=== PATIENT | female | born 1965 | race Caucasian/White ===

== ENCOUNTER 2017-04-20 10:16 | Day surgery (SDC) | payer OTHER, BC ==
[2017-04-19 11:46] VITALS: BMI 24.5
[2017-04-20 12:20] VITALS: TEMP 98
[2017-04-20 14:13] VITALS: BP 141/94; PULSE 75
--- NOTE | 2017-04-23 13:09 | PATH ---
Surgical Pathology Report Patient Name: SUKUMAR MCDONOUGH [facility]. Rec. #: [id number] /Age/Gender: 1965 (Age: 51) / F Account: [id number] Location: [facility]-ENDOSCOPY Taken: 04/20/2017 Received: 04/20/2017 Reported: 04/23/2017 Physicians: Ofelia Cano M.D. Specimen(s) Received A: BX 2ND PORTION DUODENUM B: BX ANTRUM C: BX DISTAL AND MID ESOPHAGUS D: BX ILEUM E: BX CECUM Clinical History Heartburn, rectal bleeding Gastritis, hemorrhoidal bleeding Final Diagnosis A. DUODENUM, SECOND PORTION AND BULB, BIOPSY: DUODENAL MUCOSA WITH FOCAL ACTIVE AND CHRONIC INFLAMMATION AND DEACON'S GLANDS HYPERPLASIA. NO HISTOLOGIC EVIDENCE OF GLUTEN SENSITIVE ENTEROPATHY (CELIAC DISEASE). B. STOMACH, ANTRUM, BIOPSY: GASTRIC ANTRAL MUCOSA WITH MODERATE CHRONIC GASTRITIS. IMMUNOSTAIN FOR H. PYLORI IS NEGATIVE FOR ORGANISMS. C. ESOPHAGUS, DISTAL AND MID, BIOPSY: SQUAMOUS EPITHELIUM WITH MARKED CHRONIC INFLAMMATION AND MARKED REFLUX TYPE CHANGES. NO COLUMNAR TUMOR PRESENT (NO INTESTINAL METAPLASIA OF KIMBALL'S ESOPHAGUS IDENTIFIED). NO EVIDENCE OF EOSINOPHILIC ESOPHAGITIS (SEE COMMENT). Comment: There are intraepithelial eosinophilic present; however, the eosinophil count is low (<5/HPF), the finding is most likely related to GERD. D. ILEUM, BIOPSY: ILEAL MUCOSA WITHOUT SIGNIFICANT PATHOLOGIC CHANGES. NO EVIDENCE OF ACTIVE INFLAMMATION, SIGINIFICANT ARCHITECTURAL DISTORTION, GRANULOMATA OR DYSPLASIA; NO INCREASE IN INTRAEPITHELIAL LYMPHOCYTES. E. COLON, CECUM, BIOPSY: COLONIC MUCOSA WITH FEW NEUTROPHILS IN LAMINA PROPRIA, FOCAL REACTIVE LYMPHOID AGGREGATES AND MILD INCREASE IN EOSINOPHILS (SEE COMMENT). NO EVIDENCE OF SIGNIFICANT ARCHITECTURAL DISTORTION, GRANULOMAS OR DYSPLASIA; NO EVIDENCE MICROSCOPIC COLITIS. Comment: The findings are nonspecific and may represent mild convalescent colitis of various etiologies including infectious and drug/toxin injury. No significant features of chronicity are seen. No features of microscopic colitis are identified. Electronically Signed Jose Montanez M.D. Gross Description A. Received in formalin, labeled "biopsy second portion of duodenum and bulb" are 3 francisco, irregular portions of soft tissue ranging from 0.3-0.4 cm in greatest dimension. The specimens are submitted in toto in one cassette. B. Received in formalin, labeled "biopsy antrum" are 3 francisco, irregular portions of soft tissue ranging from 0.2-0.6 cm in greatest dimension. The specimens are submitted in toto in one cassette. C. Received in formalin, labeled "biopsy distal and mid esophagus" are 3 francisco, irregular portions of soft tissue ranging from 0.1-0.2 cm in greatest dimension. The specimens are submitted in toto in one cassette. D. Received in formalin, labeled "biopsy ileum" are 2 francisco, irregular portions of soft tissue measuring 0.3 and 0.9 cm in greatest dimension. The specimens are submitted in toto in one cassette. E. Received in formalin, labeled "biopsy cecum" are 4 frnacisco, irregular portions of soft tissue averaging 0.2 cm in greatest dimension. The specimens are submitted in toto in one cassette. 04/20/201704/20/2017
== END 2017-04-20 13:45 | disposition home or self-care (01) ==
LOC: JASU-ENDO 10:16
PROVIDERS: ATTEND Internal Medicine Gastroenterology
PROC: 0DBB8ZX Excision of Ileum, Via Natural or Artificial Opening Endoscopic, Diagnostic (ICD-10-PCS; 2017-04-20)
PROC: 0DB98ZX Excision of Duodenum, Via Natural or Artificial Opening Endoscopic, Diagnostic (ICD-10-PCS; 2017-04-20)
PROC: 0DB68ZX Excision of Stomach, Via Natural or Artificial Opening Endoscopic, Diagnostic (ICD-10-PCS; 2017-04-20)
PROC: 0DB38ZX Excision of Lower Esophagus, Via Natural or Artificial Opening Endoscopic, Diagnostic (ICD-10-PCS; 2017-04-20)
PROC: 0DB28ZX Excision of Middle Esophagus, Via Natural or Artificial Opening Endoscopic, Diagnostic (ICD-10-PCS; 2017-04-20)
PROC: 0DBH8ZX Excision of Cecum, Via Natural or Artificial Opening Endoscopic, Diagnostic (ICD-10-PCS; principal; 2017-04-20 11:00)
DX: K92.1 Melena (principal); K64.8 Other hemorrhoids; Q43.8 Other specified congenital malformations of intestine; K31.89 Other diseases of stomach and duodenum; K29.50 Unspecified chronic gastritis without bleeding; R10.13 Epigastric pain; R63.4 Abnormal weight loss
CPT/HCPCS: 84703; 88305-TC; 88342-TC

== ENCOUNTER 2021-10-07 14:07 | Emergency (ER) | payer OTHER, BC ==
[2021-10-07 15:05] VITALS: BP 155/102; PULSE 74; TEMP 98.8
[2021-10-07 15:12] VITALS: BMI 25.2
[2021-10-08 16:07] LABS: SARS-CoV-2 NAA Not Detected (Not Detected)
== END 2021-10-07 15:13 | disposition home or self-care (01) ==
LOC: FER 14:07
DX: R05.1 Acute cough (principal); J02.9 Acute pharyngitis, unspecified; J06.9 Acute upper respiratory infection, unspecified
CPT/HCPCS: 99283-25; C9803; U0003; U0005